=== PATIENT | male | born 1965 | race African-American/Black ===

== ENCOUNTER 2018-08-28 09:47 | Emergency (ER) | payer SELFPAY ==
[~2018-08-28] VITALS: Ht 172.7 cm; Wt 117.0 kg
[2018-08-28 12:59] LABS: EOSINOPHILS % 1.7 % (0.0-5.0); HEMATOCRIT. 45.7 % (42.0-52.0); LYMPHOCYTES % 28.2 % (20.0-50.0); MEAN CORPUSCULAR HEMOGLOBIN 25.9 pg (28.0-32.0); MEAN PLATELET VOLUME 8.6 fl (7.4-10.4); NEUTROPHILS % 60.1 % (40.0-76.0); PLATELET 190 x1000/uL (130-400); RED BLOOD CELL COUNT 5.79 mill/uL (4.7-6.1); RED CELL DISTRIBUTION WIDTH 13.6 % (11.6-14.6)
[2018-08-28 13:04] LABS: CHLORIDE 103 mEq/L (98-107)
[2018-08-28 13:51] VITALS: BP 131/85
== END 2018-08-28 13:53 | disposition home or self-care (01) ==
LOC: ER 09:47
DX: E11.65 Type 2 diabetes mellitus with hyperglycemia (principal); R03.0 Elevated blood-pressure reading, without diagnosis of hypertension; Z98.890 Other specified postprocedural states
CPT/HCPCS: 36415; 80048; 82962; 99283